=== PATIENT | female | born 1955 | race Asian ===

== ENCOUNTER → 2020-11-26 14:13 | Outpatient (CLI) | payer MEDICARE, OTHER, SELFPAY ==
--- NOTE | 2020-11-26 14:17 | DI.RAD.S_ITS ---
PROCEDURE: XR DEXA AXIAL SKELETON INDICATIONS: Asymptomatic menopausal state COMPARISON: None. FINDINGS: This blank DEXA report has been sent in error by the PACS system. The correct and complete report will be forthcoming in 1-2 days. Thank you for your patience and understanding. Dictated by: Mila Parsons MD, PhD on 11/26/2020 at 15:45 Approved by: Mila Parsons MD, PhD on 11/26/2020 at 15:46
== END ==
PROVIDERS: PCP Internal Medicine; Referring Provider Internal Medicine; Visit Provider Internal Medicine
DX: M85.851 Other specified disorders of bone density and structure, right thigh (principal); Z78.0 Asymptomatic menopausal state; E11.9 Type 2 diabetes mellitus without complications; M06.9 Rheumatoid arthritis, unspecified; Z90.722 Acquired absence of ovaries, bilateral
CPT/HCPCS: 77080

== ENCOUNTER → 2022-03-19 13:18 | Outpatient (CLI) | payer MEDICARE, OTHER, SELFPAY | PROVIDERS: Family Provider Family Medicine; PCP Family Medicine; Referring Provider Family Medicine; Visit Provider Family Medicine | DX: R20.2 Paresthesia of skin (principal) | CPT/HCPCS: 95886; 95911 ==

== ENCOUNTER → 2022-07-12 10:14 | Outpatient (CLI) | payer MEDICARE, OTHER, SELFPAY ==
--- NOTE | 2022-07-12 10:17 | DI.MRI.S_ITS ---
PROCEDURE: MR CERVICAL SPINE WO CON INDICATIONS: Radiculopathy, cervical region TECHNIQUE: Noncontrast sagittal T1 spin echo and T2 fast spin echo, sagittal STIR, foraminal oblique sagittal T2 fast spin echo, and axial gradient echo or T2 fast spin echo through the cervical spine. COMPARISON: [facility], MR, C-SPINE WITHOUT CONTRAST, 10/22/2014, 14:22. FINDINGS: Image quality: Excellent. Alignment and Curvature: There is normal bony alignment. Bone Marrow: Marrow demonstrates normal overall signal. Spinal Cord: Visualized spinal cord has normal size and signal. No cerebellar tonsillar herniation. Paraspinous Soft Tissues: No paravertebral masses. Prevertebral soft tissues are normal in thickness. C2-C3: No canal stenosis or foraminal stenosis. C3-C4: Very minimal central posterior disc protrusion. AP diameter of the canal is 9.1 mm. No foraminal stenosis. C4-C5: Diffuse posterior disc bulge plus osteophyte, eccentric to the left. AP diameter of the canal is 8.8 mm. There is left posterior lateral disc plus osteophyte resulting in severe left lateral recess stenosis and impingement on the left C5 nerve root in the left lateral recess. There is bilateral uncovertebral joint hypertrophy. There is a left foraminal disc protrusion. There is moderate to severe right foraminal narrowing and severe left foraminal narrowing with bilateral foraminal C5 nerve root impingement. C5-C6: Posterior disc post osteophyte, eccentric to the left. AP diameter of the canal is 8.8 mm. The left side of the canal is narrowed more than this. Bilateral uncovertebral joint hypertrophy. No significant right foraminal narrowing. Moderate to severe left foraminal narrowing with a degree of left foraminal C6 nerve root impingement. C6-C7: Posterior disc post osteophyte, eccentric to the left. AP diameter of the canal is 8.4 mm. Left uncovertebral joint hypertrophy. Severe left foraminal narrowing with left foraminal C7 nerve root impingement. C7-T1: No canal stenosis or foraminal stenosis. IMPRESSION: 1. There is multilevel canal stenosis, extending from C3-C4 through C6-C7. Canal stenosis is moderate at C4-C5, C5-C6, and C6-C7. 2. There is severe left lateral recess stenosis at C4-C5. 3. Significant multilevel foraminal narrowing as described above. Findings include moderate to severe right foraminal narrowing and severe left foraminal narrowing at C4-C5, moderate to severe left foraminal narrowing at C5-C6, and severe left foraminal narrowing at C6-C7. Dictated by: Kang Danielson M.D. on 07/13/2022 at 9:42 Approved by: Kang Danielson M.D. on 07/13/2022 at 9:52
== END ==
PROVIDERS: Family Provider Family Medicine; PCP Family Medicine; Referring Provider Family Medicine; Visit Provider Family Medicine
DX: M54.12 Radiculopathy, cervical region (principal); M48.02 Spinal stenosis, cervical region
CPT/HCPCS: 72141

== ENCOUNTER → 2023-12-21 13:22 | Outpatient (CLI) | payer MEDICARE, OTHER, SELFPAY ==
--- NOTE | 2023-12-21 13:24 | DI.MRI.S_ITS ---
PROCEDURE: MR WRIST RT WO CON INDICATIONS: pain in right wrist TECHNIQUE: Noncontrast coronal proton density fast spin echo and T2 fast spin echo with fat saturation; coronal 3-D gradient echo, axial T1 spin echo and T2 fast spin echo with fat saturation, sagittal T1 spin echo through the wrist. COMPARISON: None. FINDINGS: Image quality: Excellent. Bones and cartilage: The carpal bones are normally aligned. No bone marrow contusions or fractures. No evidence for avascular necrosis. Multifocal degenerative changes are seen throughout the wrist with partial-thickness cartilage loss, small marginal osteophytes, and multifocal subchondral cystic changes. Type 2 lunate. Carpal ligaments: The scapholunate and lunotriquetral ligaments appear intact. On sagittal images, the pisohamate ligament appears intact. Triangular fibrocartilage complex: Suspected degenerative perforation of the triangular fibrocartilage disc near the radial attachment. Tendons and soft tissues: The carpal tunnel structures appear normal, including the median nerve. The ulnar nerve appears normal within Guyon's canal. Partial intrasubstance tearing is seen at the extensor carpi ulnaris tendon at the level of the ulnar groove with mild tenosynovitis and chronic tendinosis. Mild tenosynovitis of the 1st extensor compartment tendons. The remaining extensor tendon compartments demonstrate normal morphology, without pathologic tendon sheath fluid. No soft tissue ganglion cysts. IMPRESSION: 1. Moderate degenerative changes throughout the wrist with multifocal subchondral cystic changes. 2. Partial intrasubstance tearing of the extensor carpi ulnaris tendon superimposed on tendinosis and tenosynovitis. 3. Mild tenosynovitis of the abductor pollicis longus and extensor pollicis brevis tendons in the 1st extensor compartment. Approved by: Lucio Bergeron M.D. on 12/23/2023 at 8:43
== END ==
PROVIDERS: Family Provider Family Medicine; PCP Family Medicine; Referring Provider Family Medicine; Visit Provider Family Medicine
DX: S66.911A Strain of unspecified muscle, fascia and tendon at wrist and hand level, right hand, initial encounter (principal); M65.831 Other synovitis and tenosynovitis, right forearm; M25.531 Pain in right wrist
CPT/HCPCS: 73221

== ENCOUNTER → 2024-08-02 19:09 | Outpatient (CLI) | payer MEDICARE, OTHER, SELFPAY ==
--- NOTE | 2024-08-02 19:12 | DI.MRI.S_ITS ---
PROCEDURE: MR WRIST RT WO CON INDICATIONS: INCREASED WRIST PAIN,POPPING,SENSE OF INSTABILITY TECHNIQUE: Noncontrast coronal proton density fast spin echo and T2 fast spin echo with fat saturation; coronal 3-D gradient echo, axial T1 spin echo and T2 fast spin echo with fat saturation, sagittal T1 spin echo through the wrist. COMPARISON: [facility], MR, MR WRIST RT WO CON, 12/21/2023, 13:56. FINDINGS: Image quality: Excellent. Bones and cartilage: Moderate osteoarthritic changes are noted throughout wrist joints. No acute fracture or dislocation. No evidence of avascular necrosis. Nonspecific subcortical cystic areas are seen scattered in distal radius, distal ulna, scaphoid, lunate, and trapezium. No suspicious intraosseous lesions. Carpal ligaments: Low-grade sprain/intrasubstance partial-thickness tear involving scapholunate ligament is seen. No full-thickness scapholunate ligament rupture. The lunotriquetral ligament is intact. In the absence of intra-articular contrast, the extrinsic carpal ligaments are not well identified. On sagittal images, the pisohamate ligament appears intact. Triangular fibrocartilage complex: Signal abnormality and fraying involving central portion of triangular fibrocartilage is seen. The extensor carpi ulnaris tendon appears thickened at the level of ulnar styloid. Tendons and soft tissues: The carpal tunnel structures appear normal, including the median nerve. The ulnar nerve appears normal within Guyon's canal. Signal abnormality involving extensor pollicis longus tendon at the level of Nya's tubercle concerning for at least moderate grade partial-thickness tear. Tendinosis/low-grade intrasubstance partial-thickness tear involving extensor pollicis brevis tendon and abductor pollicis longus tendon at the level of radial styloid is seen. No soft tissue ganglion cysts. IMPRESSION: 1. Moderate right wrist joint osteoarthritic changes. No fracture or dislocation. No evidence of avascular necrosis. 2. Suggestion of low-grade intrasubstance partial-thickness tear involving scapholunate ligament. No full-thickness ligament rupture. The lunotriquetral ligament is intact. 3. Finding is suggestive of perforation involving central portion of triangular fibrocartilage. 4. Mild tendinosis involving extensor carpi ulnaris tendon at the level of ulnar styloid. [id number] tendinosis involving extensor pollicis brevis tendon and abductor pollicis longus tendon at the level of radial styloid. 5. Suggestion of moderate grade partial-thickness tear involving extensor pollicis longus tendon at the level of Nya's tubercle. Dictated by: Vic Vasquez M.D. on 08/03/2024 at 10:12 Approved by: Vic Vasquez M.D. on 08/03/2024 at 10:21
== END ==
LOC: MRI 19:10
PROVIDERS: Family Provider Family Medicine; PCP Family Medicine; Referring Provider Family Medicine; Visit Provider Family Medicine
DX: S63.591S Other specified sprain of right wrist, sequela (principal); M67.931 Unspecified disorder of synovium and tendon, right forearm; X58.XXXS Exposure to other specified factors, sequela
CPT/HCPCS: 73221

== ENCOUNTER → 2024-10-19 12:37 | Outpatient (CLI) | payer MEDICARE, OTHER, SELFPAY ==
--- NOTE | 2024-10-19 12:42 | DI.RAD.S_ITS ---
PROCEDURE: XR DEXA AXIAL SKELETON INDICATIONS: asymptomatic menopausal state COMPARISON: [facility], CR, XR DEXA AXIAL SKELETON, 11/26/2020, 14:39. FINDINGS: Lumbar Spine: Bone mineral density 0.914 g/cm2, T score -1.2, osteopenia, change from previous-3.4%. Statistical significance of bone mineral density change cannot be determined due to dissimilar scan types or analysis method.. Left Femoral Neck: Bone mineral density 0.648 g/cm2, T score -1.8, osteopenia. Left Hip: Bone mineral density 0.796 g/cm2, T score -1.2, osteopenia, change from previous-3.8%. Statistical significance of bone mineral density change cannot be determined due to dissimilar scan types or analysis method.. Fracture Risk Calculation (when applicable): 10-year fracture risk of a major osteoporotic fracture 9.8 percent and of a hip fracture 1.8 percent. (T score greater or equal to -1.0 to: NORMAL) (T score from -1.1 to -2.4: OSTEOPENIA) (T score less than or equal to -2.5: OSTEOPOROSIS) IMPRESSION: Osteopenia elevates the patient's 10 year fracture risk as described. Subjective decrease in bone mineral density. Statistical significance of bone mineral density change cannot be determined due to dissimilar scan types or analysis method. Follow-up guidelines as follows: Osteoporosis: Consider a repeat DEXA and Vertebral Fracture Assessment (VFA) exam in 2 years or sooner if medically necessary, to reassess this patient's status. Osteopenia: Consider a repeat DEXA in 2-3 years to reassess this patient's status, or if there is a new clinical indication. Normal: Consider a repeat DEXA in 5 years or sooner, or if there is a new clinical indication. All treatment decisions require clinical judgment and consideration of individual patient factors, including patient preferences, comorbidities, previous drug use, risk factors not captured in the FRAX model (e.g., frailty, falls, vitamin D deficiency, increased bone turnover, interval significant decline in bone density ) and possible under- or over-estimation of fracture risk by FRAX. In addition, the NOF Guide recommends that FDA-approved medical therapies be considered in postmenopausal women and men age >= 50 years with a: * Hip or vertebral (clinical or morphometric) fracture * T-score of <=-2.5 at the spine or hip * Ten-year fracture probability by FRAX of >= 3% for hip fracture or >=20% for major osteoporotic fracture. Dictated by: Jacquelin Muller M.D. on 10/19/2024 at 22:20 Approved by: Jacquelin Muller M.D. on 10/19/2024 at 22:22
== END ==
PROVIDERS: Family Provider Family Medicine; PCP Family Medicine; Referring Provider Family Medicine; Visit Provider Family Medicine
DX: M85.89 Other specified disorders of bone density and structure, multiple sites (principal); Z78.0 Asymptomatic menopausal state
CPT/HCPCS: 77080